=== PATIENT | female | born 1975 | race Hispanic/Latino ===

== ENCOUNTER 2016-11-03 10:22 | Emergency (ER) | payer BC ==
[2016-11-03 10:22] VITALS: BMI 29.2
[2016-11-03 10:53] VITALS: BP 112/69; PULSE 66; RESP 19; TEMP 97.9
[2016-11-03 11:47] VITALS: O2SAT 98
--- NOTE | 2016-11-03 12:26 | ED PDOC ---
HPI: Abdomen Time Seen by Provider: 11/03/16 12:15 Chief Complaint (Nursing): Abdominal Pain Chief Complaint (Provider): Abdominal Pain History Per: Patient History/Exam Limitations: no limitations Onset/Duration Of Symptoms: Days Current Symptoms Are (Timing): Still Present Severity: Mild Associated Symptoms: Urinary Symptoms. denies: Fever, Nausea, Vomiting Exacerbating Factors: None Alleviating Factors: None Additional Complaint(s): Patient is a 41 year old female who presents to ED for vaginal burning for 2 months. Patient states she was evaluated by her OB-TRANSLATION DIRECTOR, Dr. Martinez who prescribed her metrogel cream with no relief. Patient states she was than diagnosed with a UTI, prescribed Macrobid which provided no relief, followed up and prescribed Ampicillion last dose 3 days ago with no relief. Patient denies urinary frequency or dysuria, states that vaginal burning is constant. Denies rash. Notes a mild discharge with an odor initially but none at this time. Of note patient recently gave 6 months ago and due to was limited on the type of antibiotics. Patient also with a history of bladder rupture in 1994 with surgical repair Past Medical History Reviewed: Historical Data, Nursing Documentation, Vital Signs Vital Signs: Last Vital Signs Temp 97.9 F 11/03/16 10:53 Pulse 66 11/03/16 10:53 Resp 19 11/03/16 10:53 BP 112/69 11/03/16 10:53 Pulse Ox 98 11/03/16 14:22 - Medical History PMH: No Chronic Diseases - Surgical History Other surgeries: ruptured bladder - Family History Family History: States: No Known Family Hx - Living Arrangements Living Arrangements: With Family - Home Medications Home Medications: Ambulatory Orders Medication Instructions Recorded Pnv95/Iron Fum/Folic Acid 1 each PO DAILY 03/19/16 [ Caplet] Hydrocortisone-Pramoxine 1%-1% 1 gm TOP TID PRN #0 aer 05/08/16 [Proctofoam] Ibuprofen [Motrin Tab] 800 mg PO Q8 PRN #40 tab 05/08/16 Witch Nancy [Tucks] 1 pad TP Q4 PRN #0 pad 05/08/16 - Allergies Allergies/Adverse Reactions: Allergies Allergy/AdvReac Type Severity Reaction Status Date / Time cefaclor [From [facility]] Allergy RASH Verified 03/20/17 11:43 hydrocodone bitartrate Allergy RASH Verified 11/03/16 11:43 [From Vicodin] morphine Allergy RASH Verified 11/03/16 11:43 Review of Systems ROS Statement: Except As Marked, All Systems Reviewed And Found Negative Constitutional: Negative for: Fever, Chills Gastrointestinal: Positive for: Abdominal Pain. Negative for: Nausea, Vomiting Genitourinary Female: Positive for: Vaginal Discharge. Negative for: Dysuria, Frequency, Rash Musculoskeletal: Negative for: Back Pain Neurological: Negative for: Weakness Physical Exam - Reviewed Nursing Documentation Reviewed: Yes Vital Signs Reviewed: Yes - Physical Exam Appears: Positive for: Well, Non-toxic, No Acute Distress Skin: Positive for: Normal Color, Warm. Negative for: Rash Eye Exam: Positive for: Normal appearance Neck: Positive for: Normal, Painless ROM Gastrointestinal/Abdominal: Positive for: Tenderness (minimal suprapubic ). Negative for: Distended, Guarding, Rebound Pelvic Exam: Positive for: External Exam Normal, Speculum Exam Normal, No Masses , Other (Satya Mike RN present as correctional facility psychiatrist during pelvic exam). Negative for: Active Bleeding, Cervicitis, Discharge, Lesions, Mass, Ulcers Back: Positive for: Normal Inspection. Negative for: L CVA Tenderness, R CVA Tenderness Extremity: Positive for: Normal ROM Neurologic/Psych: Positive for: Alert, Oriented - Laboratory Results Urine POC: Negative - ECG O2 Sat by Pulse Oximetry: 98 (RA) Pulse Ox Interpretation: Normal - Progress ED Course And Treament: Case d/w Dr. Martinez, pt's CERAMIC SPRAYER who states that bacterial was susceptible to previously prescribed antibiotics. Requests that Dr. Kumar be contacted as this is his patient. As per Dr. Kumar he is no longer taking consults as he is semi-retired. As per Dr. Michelle Zimmer can be contacted. Case d/w Dr. Zimmer along with lab results and US results. He states pt. can f/ u in his office. Pt. informed of plan and agrees. She will f/u with Dr. Zimmer. Medical Decision Making Medical Decision Making: Time: 1220 Initial Impression: R/O UTI and STD Initial Plan: -- Chlamydia/GC RNA -- GC culture -- Urine culture -- U/A -- U/S Time: 1243 Urine results reviewed: WNL Time: 1410 U/S results reviewed HISTORY: suprapubic pain COMPARISON: Transvaginal pelvic ultrasound performed 11/14/15 TECHNIQUE: Transabdominal pelvic ultrasound. FINDINGS: UTERUS: Measures 6.9 x 3.9 x 2.9 cm. Anteverted. ENDOMETRIUM: Measures 5 mm in diameter. RIGHT OVARY: Not visualized. LEFT OVARY: Not visualized. FREE FLUID: No significant free fluid noted. OTHER FINDINGS: Limited visualization of an under distended urinary bladder. IMPRESSION: Bilateral ovaries are not visualized. Transvaginal pelvic ultrasound may be considered for further evaluation if indicated. Limited visualization of an under distended urinary bladder. If evaluation of the urinary bladder is of clinical concern, pre and postvoid urinary bladder ultrasound may be considered. Scribe Attestation: Documented by Patrica Cramer, acting as a scribe for Fran Vieyra PA-C. Provider Scribe Attestation: All medical record entries made by the Scribe were at my direction and personally dictated by me. I have reviewed the chart and agree that the record accurately reflects my personal performance of the history, physical exam, medical decision making, and the department course for this patient. I have also personally directed, reviewed, and agree with the discharge instructions and disposition. Disposition - Clinical Impression Clinical Impression: Pelvic pain - Patient ED Disposition Is Patient to be Admitted: No - Disposition Referrals: Boni Zimmer MD [Medical Doctor] - Disposition: Routine/Home Disposition Time: 15:00 Condition: STABLE Additional Instructions: Follow up with Dr. Zimmer WITHOUT FAIL for further evaluation. Instructions: Pelvic Pain in Women (ED) Print Language: MALAY
[2016-11-03 13:23] LABS: RBC URINE 1 /hpf (0-3); URINE BILIRUBIN NEGATIVE (NEGATIVE); URINE BLOOD MODERATE (NEGATIVE); URINE COLOR YELLOW (YELLOW); URINE GLUCOSE (UA) NEG (Normal); URINE KETONE NEGATIVE (NEGATIVE); URINE LEUKOCYTE ESTERASE NEG Leu/uL (Negative); URINE PROTEIN NEGATIVE (NEGATIVE); URINE UROBILINOGEN 0.2-1.0 mg/dL (0.2-1.0); WBC URINE < 1 /hpf (0-5)
--- NOTE | 2016-11-03 14:03 | US ---
HISTORY: suprapubic pain COMPARISON: Transvaginal pelvic ultrasound performed 11/14/15 TECHNIQUE: Transabdominal pelvic ultrasound. FINDINGS: UTERUS: Measures 6.9 x 3.9 x 2.9 cm. Anteverted. ENDOMETRIUM: Measures 5 mm in diameter. RIGHT OVARY: Not visualized. LEFT OVARY: Not visualized. FREE FLUID: No significant free fluid noted. OTHER FINDINGS: Limited visualization of an under distended urinary bladder. IMPRESSION: Bilateral ovaries are not visualized. Transvaginal pelvic ultrasound may be considered for further evaluation if indicated. Limited visualization of an under distended urinary bladder. If evaluation of the urinary bladder is of clinical concern, pre and postvoid urinary bladder ultrasound may be considered.
[2016-11-03] MEDS ORDERED: Albuterol-Ipratrop 3 mg / 0.5 (3 ml) UD ONE (17:09)
== END 2016-11-03 15:55 | disposition home or self-care (01) ==
LOC: H.ER 10:22
DX: R10.2 Pelvic and perineal pain (principal)

== ENCOUNTER 2017-03-01 21:28 | Emergency (ER) | payer BC ==
[2017-03-01 21:28] VITALS: BMI 29.2
[2017-03-01 21:52] VITALS: BP 128/75; PULSE 76; RESP 18; TEMP 98.2; O2SAT 99
--- NOTE | 2017-03-02 | ED PDOC ---
HPI: Female Pain Time Seen by Provider: 03/01/17 21:57 Chief Complaint (Nursing): Female Genitourinary Chief Complaint (Provider): dysuria/pelivc pain History Per: Patient History/Exam Limitations: no limitations Additional Complaint(s): 41yo F in Ed with hx of chronic UTI's and was recently dx with interstitial cystitis.Pt has been seen by her OBGYN/and Urology. has been taking vesicare with limited relief for freq urination/UTI. Pt now c/o severe pelvic cramping preventing her from moving radiating to back. denies nausea vomiting fever vaginal d/c. pain has subsided somewhat in ER. denies hx of PID. 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 recently had a 6 months ago which is when her freq. UTI developed Past Medical History Reviewed: Historical Data, Nursing Documentation, Vital Signs Vital Signs: Last Vital Signs Temp 98.2 F 03/01/17 21:49 Pulse 76 03/01/17 21:49 Resp 18 03/01/17 21:49 BP 128/75 03/01/17 21:49 Pulse Ox 99 03/01/17 21:49 - Medical History Other PMH: UTI - Surgical History Surgical History: - Family History Family History: States: No Known Family Hx - Home Medications Home Medications: Ambulatory Orders Medication Instructions Recorded Pnv95/Iron Fum/Folic Acid 1 each PO DAILY 03/19/16 [ Caplet] Hydrocortisone-Pramoxine 1%-1% 1 gm TOP TID PRN #0 aer 05/08/16 [Proctofoam] Ibuprofen [Motrin Tab] 800 mg PO Q8 PRN #40 tab 05/08/16 Witch Nancy [Tucks] 1 pad TP Q4 PRN #0 pad 05/08/16 - Allergies Allergies/Adverse Reactions: Allergies Allergy/AdvReac Type Severity Reaction Status Date / Time cefaclor [From Ceclor] Allergy RASH Verified 03/01/17 21:48 hydrocodone bitartrate Allergy RASH Verified 03/01/17 21:48 [From Vicodin] morphine Allergy RASH Verified 03/01/17 21:48 Review of Systems ROS Statement: Except As Marked, All Systems Reviewed And Found Negative Constitutional: Negative for: Fever, Chills Gastrointestinal: Positive for: Abdominal Pain Genitourinary Female: Positive for: Dysuria, Frequency. Negative for: Incontinence, Hematuria, Vaginal Discharge, Vaginal Bleeding, Pelvic Pain Skin: Negative for: Rash Physical Exam - Reviewed Nursing Documentation Reviewed: Yes Vital Signs Reviewed: Yes - Physical Exam Appears: Positive for: Well, Non-toxic, No Acute Distress Skin: Positive for: Normal Color, Warm, DRY Cardiovascular/Chest: Positive for: Regular Rate, Rhythm Respiratory: Positive for: CNT, Normal Breath Sounds Gastrointestinal/Abdominal: Positive for: Normal Exam, Bowel Sounds, Soft. Negative for: Tenderness Pelvic Exam: Positive for: External Exam Normal, Speculum Exam Normal (noted: tenderness on exam, beklly of bladder noted on exam no prolapse noted on PE of bladder). Negative for: Bimanual Exam Normal, No Cerv. Motion Tender, No Masses , Active Bleeding, Blood, Cervicitis, Discharge, Lesions, Mass, Tender W/ Cervical Motion, Tender Adnexa, Tender Uterus Back: Positive for: Normal Inspection. Negative for: L CVA Tenderness, R CVA Tenderness Extremity: Positive for: Normal ROM Neurologic/Psych: Positive for: Alert, Oriented - ECG O2 Sat by Pulse Oximetry: 99 - Progress ED Course And Treament: TV US-pt opts to not have pelvic US because she is unable to keep her bladder full for the exam. Pt will get UA/Urine cx. Disposition - Clinical Impression Clinical Impression: Genitourinary Pain - Patient ED Disposition Is Patient to be Admitted: Transfer of Care - Disposition Disposition Time: 00:03 Condition: STABLE Patient Signed Over To: Fran Vieyra (US results)
[2017-03-02 00:01] LABS: SQUAMOUS EPITHIAL 1 /hpf (0-5); URINE BILIRUBIN NEGATIVE (NEGATIVE); URINE BLOOD SMALL (NEGATIVE); URINE CLARITY CLEAR (Clear); URINE COLOR YELLOW (YELLOW); URINE GLUCOSE (UA) NEG (Normal); URINE LEUKOCYTE ESTERASE NEG Leu/uL (Negative); URINE NITRATE NEGATIVE (NEGATIVE); URINE PROTEIN NEGATIVE (NEGATIVE); URINE UROBILINOGEN 0.2-1.0 mg/dL (0.2-1.0)
--- NOTE | 2017-03-02 02:08 | ED PDOC ---
- ECG O2 Sat by Pulse Oximetry: 99 - Progress ED Course And Treament: Signed out to me pending US results. Case d/w Dr. Watts who states pt. can f/u in his office. TVUS: No acute sonographic abnormality involving pelvis viscera. On re-evaluation, pt. informed of results. Pt. instructed to f/u with Dr. Redd or her urologist. Disposition - Clinical Impression Clinical Impression: Urinary frequency - POA Present On Arrival: None - Disposition Referrals: [facility] [Outside] Disposition: Routine/Home Disposition Time: 01:15 Condition: STABLE Instructions: Dysuria (ED) Print Language: SLOVAK
--- NOTE | 2017-03-02 11:41 | US ---
HISTORY: pevlic pain COMPARISON: 11/03/2016 TECHNIQUE: Transvaginal FINDINGS: UTERUS: Measures 7.2 x 5.4 x 3.6 cm. Normal in size and appearance. No fibroid or other mass lesion seen. ENDOMETRIUM: Measures 7 mm in diameter. Unremarkable. CERVIX: No cervical abnormality identified. RIGHT OVARY: Measures 2.4 x 2.0 x 1.6 cm. No solid mass. Normal flow. LEFT OVARY: Measures 3.0 x 2.5 x 1.7 cm. No solid mass. Normal flow. FREE FLUID: No significant free fluid noted. OTHER FINDINGS: None. IMPRESSION: Unremarkable pelvic ultrasound.
== END 2017-03-02 01:24 | disposition home or self-care (01) ==
LOC: H.ER 21:28
DX: R30.0 Dysuria (principal); R10.2 Pelvic and perineal pain; N30.10 Interstitial cystitis (chronic) without hematuria